=== PATIENT | female | born 2000 | race Caucasian/White ===

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

== ENCOUNTER 2018-03-23 18:12 | Emergency (ER) | payer OTHER ==
--- NOTE | 2018-03-23 18:56 | CPEKG ---
Test Reason : OPEN Blood Pressure : / mmHG Vent. Rate : 062 BPM Atrial Rate : 064 BPM P-R Int : 122 ms QRS Dur : 090 ms QT Int : 402 ms P-R-T Axes : 073 113 061 degrees QTc Int : 409 ms Sinus rhythm Left posterior fascicular block Confirmed by Yadiel Pino ([id number]) on 03/23/2018 6:55:42 PM Referred By: Confirmed By:Yadiel Pino
[2018-03-23 19:06] LABS: PLATELET COUNT 317 10^3/uL (150-400)
[2018-03-23] MEDS: NS 1,000 ML IV ONE (19:12)
[2018-03-23] MEDS: KETOROLAC 15 MG/1 ML SDV IVP ONE (19:12)
--- NOTE | 2018-03-23 19:32 | EDPHY ---
H & P Stated Complaint: c/o 9 days of n/v/fever, cp starting today Time Seen by Provider: 03/23/18 18:32 HPI/ROS: Chief complaint: Fever and cold symptoms History of present illness: This is an otherwise healthy 17-year-old female sent to the emergency department by [facility] for evaluation of fever and cold symptoms. Patient reports she has been sick for the last 9 days. She has had tactile fevers, runny nose, cough. In addition over the last few days she has had some nausea and occasional vomiting. She has developed diffuse abdominal and back pain. She reports mild discomfort with urination. Today she developed left-sided chest discomfort. She describes a sharp chest discomfort. It is not pleuritic in nature. There is no shortness of breath. She denies headache or neck pain. She denies pain or swelling in the legs. [facility] did believe she might have a urinary tract infection and started her on antibiotics although she is not sure what antibiotic. She has taken a single dose. They were concerned for pericarditis which is why they sent her here. Review of systems: A 10 point review of systems was obtained and other than described above was negative - Medical/Surgical History Hx Asthma: No Hx Chronic Respiratory Disease: No Hx Diabetes: No Hx Cardiac Disease: No Hx Renal Disease: No Hx Cirrhosis: No Hx Alcoholism: No Hx HIV/AIDS: No Hx Splenectomy or Spleen Trauma: No Other PMH: depression & anxiety, anorexia, add, tonsil surg, adenoidectomy - Social History Smoking Status: Former smoker - Physical Exam Exam: General Appearance: Alert, no distress. Eyes: Pupils equal and round no pallor or injection. ENT, Mouth: Tympanic membranes, external auditory canals, external easr and surrounding soft tissue including over the mastoids are unremarkable. Nasopharynx is not injected. There is no rhinorrhea. Oropharynx is not injected. There is no edema. There is no exudate. There is no asymmetry. The uvula is midline. No elevation of the tongue. There is no hoarseness, no drooling, no trismus, no stridor. Respiratory: There are no retractions, lungs are clear to auscultation. Cardiovascular: Regular rate and rhythm. Gastrointestinal: Bowel sounds are normal. Abdomen is soft and nondistended. Mild diffuse tenderness although there is McBurney's point tenderness. Genitourinary: Mild bilateral CVA tenderness. Neurological: Alert and oriented x4. Strength and sensation intact and symmetrical. No meningismus. Skin: Warm and dry, no rashes. Musculoskeletal: Neck is supple non tender. Extremities are symmetrical, full range of motion. Psychiatric: Patient is oriented X 3, there is no agitation. Constitutional: Initial Vital Signs Temperature (C) 36.9 C 03/23/18 18:20 Heart Rate 94 03/23/18 18:20 Respiratory Rate 16 03/23/18 18:20 Blood Pressure 118/83 H 03/23/18 18:20 O2 Sat (%) 95 03/23/18 18:20 O2 Delivery Mode Room Air Allergies/Adverse Reactions: No Known Allergies Allergy (Verified 03/23/18 18:24) Home Medications: Medication Instructions Recorded Melatonin 05/27/17 Cephalexin [Keflex] 500 mg PO QID 7 Days cap 03/23/18 Klonopin 03/23/18 Trintellix 03/23/18 VYVANSE 03/23/18 Medical Decision Making - Diagnostics Imaging Results: Imaging Impressions Abdomen Ultrasound 03/23/18 18:57 Impression: No evidence of appendicitis. Findings and recommendations discussed with Emergency Department Physician Loan Review Analyst, KAITLYN Storm, at 1940 hours, on March 23, 2018. Final report concurs with initial preliminary interpretation. Chest X-Ray 03/23/18 18:57 Impression: No acute pulmonary disease. Imaging: I viewed and interpreted images myself ED Course/Re-evaluation: Patient is discussed with my secondary supervising physicians, initially Dr. Yadiel Pino and then Dr. Gladis Maurice. I do believe patient is suffering from a URI. Further, I am concerned she has a urinary tract infection. She has been symptomatically treated with pain medicine and fluid hydration and is feeling better. She is tolerating oral challenges. She is ambulating without difficulty. She has been given 1 g Rocephin IV in the emergency room. I have asked her to stop the antibiotic that [facility] gave her as it is not clear what this is and she will be started on Keflex. Home care is discussed including the use of NSAIDs as well as stronger pain medicines as needed. Hydration and rest. She is to follow up with [facility] on Monday for recheck. She is given strict return precautions. She has voiced understanding and agreement with plan. Differential Diagnosis: Included but not limited to URI, bronchitis, pneumonia, influenza, pericarditis , gastritis, gastroenteritis, biliary tract disease, pancreatitis, urinary tract disease, an associated complications - Data Points Laboratory Results: Laboratory Results 03/23/18 18:35 03/23/18 18:35 03/23/18 03/23/18 03/23/18 20:14 18:35 18:35 WBC RBC Hgb Hct MCV MCH MCHC RDW Plt Count MPV Neut % (Auto) Lymph % (Auto) [place] % (Auto) Eos % (Auto) Baso % (Auto) Nucleat RBC Rel Count Absolute Neuts (auto) Absolute Lymphs (auto) Absolute Monos (auto) Absolute Eos (auto) Absolute Basos (auto) Absolute Nucleated RBC Immature Gran % Immature Gran # Sodium 139 mEq/L mEq/L (135-145) Potassium 3.7 mEq/L mEq/L (3.3-5.0) Chloride 101 mEq/L mEq/L (97-110) Carbon Dioxide 23 mEq/l mEq/l (22-31) Anion Gap 15 mEq/L H mEq/L (6-14) BUN 7 mg/dL mg/dL (7-23) Creatinine 0.8 mg/dL mg/dL (0.6-1.0) Estimated GFR > 60 Glucose 79 mg/dL mg/dL (70-100) Calcium 9.6 mg/dL mg/dL (8.5-10.4) Total Bilirubin 0.5 mg/dL mg/dL (0.1-1.4) Conjugated Bilirubin 0.2 mg/dL mg/dL (0.0-0.5) Unconjugated Bilirubin 0.3 mg/dL mg/dL (0.0-1.1) AST 19 IU/L IU/L (14-46) ALT 27 IU/L IU/L (9-52) Alkaline Phosphatase 97 IU/L IU/L (38-126) Total Protein 7.5 g/dL g/dL (6.3-8.2) Albumin 4.4 g/dL g/dL (3.5-5.0) Lipase 18 IU/L L IU/L (23-300) Beta HCG, Qual NEGATIVE Urine Color DANIEL Urine Appearance HAZY Urine pH 5.0 (5.0-7.5) Ur Specific [place] 1.034 H (1.002-1.030) Urine Protein 1+ H (NEGATIVE) Urine Ketones 2+ H (NEGATIVE) Urine Blood 1+ H (NEGATIVE) Urine Nitrate NEGATIVE (NEGATIVE) Urine Bilirubin NEGATIVE (NEGATIVE) Urine Urobilinogen 4.0 EU H EU (0.2-1.0) Ur Leukocyte Esterase TRACE H (NEGATIVE) Urine RBC 1-3 /hpf /hpf (0-3) Urine WBC 3-5 /hpf H /hpf (0-3) Ur Epithelial Cells 1+ /lpf /lpf (NONE-1+) Urine Bacteria TRACE /hpf H /hpf (NONE SEEN) Urine Mucus 4+ /lpf H /lpf (NONE-1+) Urine Glucose NEGATIVE (NEGATIVE) 03/23/18 18:35 WBC 14.50 10^3/uL H 10^3/uL (3.80-9.50) RBC 5.25 10^6/uL 10^6/uL (4.18-5.33) Hgb 13.9 g/dL g/dL (12.6-16.3) Hct 42.7 % % (38.0-47.0) MCV 81.3 fL L fL (81.5-99.8) MCH 26.5 pg L pg (27.9-34.1) MCHC 32.6 g/dL g/dL (32.4-36.7) RDW 12.5 % % (11.5-15.2) Plt Count 317 10^3/uL 10^3/uL (150-400) MPV 11.5 fL fL (8.7-11.7) Neut % (Auto) 72.1 % % (39.3-74.2) Lymph % (Auto) 21.9 % % (15.0-45.0) [place] % (Auto) 5.1 % % (4.5-13.0) Eos % (Auto) 0.2 % L % (0.6-7.6) Baso % (Auto) 0.4 % % (0.3-1.7) Nucleat RBC Rel Count 0.0 % % (0.0-0.2) Absolute Neuts (auto) 10.46 10^3/uL H 10^3/uL (1.70-6.50) Absolute Lymphs (auto) 3.17 10^3/uL H 10^3/uL (1.00-3.00) Absolute Monos (auto) 0.74 10^3/uL 10^3/uL (0.30-0.80) Absolute Eos (auto) 0.03 10^3/uL 10^3/uL (0.03-0.40) Absolute Basos (auto) 0.06 10^3/uL 10^3/uL (0.02-0.10) Absolute Nucleated RBC 0.00 10^3/uL 10^3/uL (0-0.01) Immature Gran % 0.3 % % (0.0-1.1) Immature Gran # 0.04 10^3/uL 10^3/uL (0.00-0.10) Sodium Potassium Chloride Carbon Dioxide Anion Gap BUN Creatinine Estimated GFR Glucose Calcium Total Bilirubin Conjugated Bilirubin Unconjugated Bilirubin AST ALT Alkaline Phosphatase Total Protein Albumin Lipase Beta HCG, Qual Urine Color Urine Appearance Urine pH Ur Specific [place] Urine Protein Urine Ketones Urine Blood Urine Nitrate Urine Bilirubin Urine Urobilinogen Ur Leukocyte Esterase Urine RBC Urine WBC Ur Epithelial Cells Urine Bacteria Urine Mucus Urine Glucose Medications Given: Discontinued Medications Hydrocodone Bitart/Acetaminophen (Enloe 5/325mg Prepack#6) 1 btl TAKEHOME EDNOW ONE Stop: 03/23/18 21:15 Last Admin: 03/23/18 21:35 Dose: 1 btl Hydromorphone HCl (Dilaudid) 0.5 mg IVP EDNOW ONE Stop: 03/23/18 20:18 Last Admin: 03/23/18 20:23 Dose: 0.5 mg Sodium Chloride (Ns) 1,000 mls @ 0 mls/hr IV EDNOW ONE; Wide Open PRN Reason: Protocol Stop: 03/23/18 18:58 Last Admin: 03/23/18 19:12 Dose: 1,000 mls Ceftriaxone Sodium/Dextrose (Rocephin 1 Gm (Premix)) 50 mls @ 100 mls/hr IV EDNOW ONE PRN Reason: Protocol Stop: 03/23/18 21:17 Last Admin: 03/23/18 21:02 Dose: 50 mls Ketorolac Tromethamine (Toradol) 15 mg IVP EDNOW ONE Stop: 03/23/18 18:59 Last Admin: 03/23/18 19:12 Dose: 15 mg Ondansetron HCl (Zofran) 4 mg IVP EDNOW ONE Stop: 03/23/18 20:27 Last Admin: 03/23/18 20:29 Dose: 4 mg Departure - Departure Disposition: Home, Routine, Self-Care Clinical Impression: Viral syndrome UTI (urinary tract infection) Qualifiers: Urinary tract infection type: site unspecified Hematuria presence: with hematuria Qualified Code(s): N39.0 - Urinary tract infection, site not specified ; R31.9 - Hematuria, unspecified; R31.9 - Hematuria, unspecified Condition: Good Instructions: Hydrocodone/Acetaminophen (By mouth), Urinary Tract Infection in Women (ED), Viral Syndrome (ED) Additional Instructions: Follow-up with [facility] on Monday for recheck without fail In regards to your respiratory tract infection I suggest you drink plenty of fluids. Get plenty of rest. In regards to your urinary tract infection please let [facility] know that a urine culture is pending. Take antibiotics as prescribed. Use ibuprofen 600 mg 3 times a day for the next 2-3 days for pain You can take Enloe as well for pain. Enloe contains Tylenol. Do not take extra Tylenol/acetaminophen/APAP with it. It is sedating. If symptoms worsen or new symptoms develop return to the emergency room for recheck Referrals: NONE *PRIMARY CARE P,. [Primary Care Provider] - As per Instructions [facility] [Cl[facility]] - As per Instructions Prescriptions: Cephalexin [Keflex] 500 mg PO QID 7 Days cap
[2018-03-23] MEDS: HYDROmorphONE/DILAUDID 2 MG/ML INJ IVP ONE (20:23)
[2018-03-23] MEDS: ONDANSETRON 4 MG/2 ML VIAL IVP ONE (20:29)
[2018-03-23] MEDS: HYDROCOD/APAP 5/325 PREPACK#6 BTL TAKEHOME ONE (21:35)
[2018-03-23 21:43] VITALS: BP 116/62
== END 2018-03-23 21:43 | disposition home or self-care (01) ==
DX: N39.0 Urinary tract infection, site not specified (principal); N31.9 Neuromuscular dysfunction of bladder, unspecified; B34.9 Viral infection, unspecified
CPT/HCPCS: 96365; J0696; J1170; J1885; J2405

== ENCOUNTER 2018-03-29 12:32 | Observation (INO) | payer OTHER ==
[2018-03-29] MEDS ORDERED: NS 1,000 ML IV ONE ×2 (12:59)
[2018-03-29] MEDS ORDERED: ONDANSETRON 4 MG/2 ML VIAL IVP ONE ×2 (12:59→15:22)
--- NOTE | 2018-03-29 13:08 | EDPHY ---
H & P Stated Complaint: Dif abd pn x 2 weeks, N/V, denies blood Time Seen by Provider: 03/29/18 12:44 HPI/ROS: CHIEF COMPLAINT: Abdominal pain, nausea, vomiting "I want a CT scan" HISTORY OF PRESENT ILLNESS: 17-year-old female in the emergency department via private vehicle complaining of continued abdominal pain, nausea, vomiting, constipation for approximately 2 weeks. The patient was initially seen in the emergency department 6 days ago for URI symptoms as well as urinary symptoms. She had abdominal ultrasound which was negative for appendicitis at that time as well as chest x-ray which was negative. It was felt that the patient was experiencing upper respiratory infection with concern over urinary tract infection, given IV Rocephin and started on Keflex which the patient took for 1 day. However, this elicited nausea and vomiting and patient subsequently stopped taking the Keflex. She returns to the ER after being seen at [facility] for continued symptoms, specifically at this time she is complaining of abdominal pain, nausea , vomiting, right lower quadrant pain, sent to the ER for evaluation of possible acute appendicitis. She presents [place] [facility] [place] [id number]. She denies: Melena, hematochezia, fever, chills , abdominal or other trauma REVIEW OF SYSTEMS: 10 systems reviewed and negative with the exception of the elements mentioned in the history of present illness PAST MEDICAL & SURGICAL HISTORY: Intrauterine device. No history of abdominal surgeries. Adenoidectomy. Depression. Anxiety. Anorexia. SOCIAL HISTORY: Nonsmoker. PHYSICAL EXAM (Prior to examination, patient consented to physical exam, hands were washed and my usual and customary physical exam procedures followed) 1) GENERAL: Well-developed, well-nourished, alert and oriented. Appears uncomfortable, laying curled up on the bed 2) HEAD: Normocephalic, atraumatic 3) HEENT: Pupils equal, round, reactive to light bilaterally. Sclera anicteric. Nasopharynx, oropharynx, clear, no lesions. Dry mucous membranes. 4) NECK: Full range of motion, no meningeal signs. 5) LUNGS: Clear auscultation bilaterally, no wheezes, no rhonchi, no retractions. 6) HEART: Regular rate and rhythm, no murmur, no heave, no gallop. 7) ABDOMEN: guarding abdomen, tender to palpation at McBurney's point, negative Hazel's, negative Rovsing's, negative peritoneal sign, not distended, flat 8) MUSCULOSKELETAL: Moving all extremities, no focal areas of tenderness, no obvious trauma. No peripheral edema or discoloration. 9) BACK: No CVA tenderness, no midline vertebral tenderness, no fluctuance, no step-off, no obvious trauma, no visual or palpable abnormality. 10) SKIN: No rash, no petechiae. 11) Psychiatric: Patient is oriented X 3, there is no agitation. DIFFERENTIAL DIAGNOSIS: My differential diagnosis includes, but is not limited to, acute appendicitis, acute cholecystitis, bowel obstruction, acute pancreatitis, ovarian torsion, ectopic , gastritis and urinary tract infection. The patient understands that this diagnosis is provisional and can never be 100% accurate. This is a partial list of diagnoses considered. These considerations are based on history, physical exam, past history and reassessment. - Personal History Current Tetanus/Diphtheria Vaccine: Yes - Medical/Surgical History Hx Asthma: No Hx Chronic Respiratory Disease: No Hx Diabetes: No Hx Cardiac Disease: No Hx Renal Disease: No Hx Cirrhosis: No Hx Alcoholism: No Hx HIV/AIDS: No Hx Splenectomy or Spleen Trauma: No Other PMH: depression & anxiety, anorexia, add, tonsil surg, adenoidectomy - Social History Smoking Status: Former smoker Constitutional: Initial Vital Signs Temperature (C) 36.8 C 03/29/18 12:35 Heart Rate 116 H 03/29/18 12:35 Respiratory Rate 18 03/29/18 12:35 Blood Pressure 116/75 03/29/18 12:35 O2 Sat (%) 98 03/29/18 12:35 O2 Delivery Mode Room Air Allergies/Adverse Reactions: No Known Allergies Allergy (Verified 03/29/18 12:35) Home Medications: Medication Instructions Recorded Acetaminophen [Tylenol 325mg (*)] 325 - 650 mg PO Q6 PRN 03/29/18 Ibuprofen [Motrin (*)] 200 - 400 mg PO Q4H PRN 03/29/18 Lisdexamfetamine Dimesylate 30 mg PO DAILY 03/29/18 [Vyvanse] Melatonin/Pyridoxine HCl (B6) 1 each PO HS PRN 10/18/18 [Melatonin 10 mg Tablet] Naproxen Sodium [Aleve 220 MG (*)] 220 mg PO BID PRN 03/29/18 Vortioxetine Hydrobromide 5 mg PO DAILY 03/29/18 [Brintellix] clonazePAM [klonoPIN (*)] 1 mg PO HS PRN 03/29/18 Medical Decision Making ED Course/Re-evaluation: 12:46 p.m.: I reviewed the patient's old medical records. She is focally tender to palpation at McBurney's point. We discussed possible etiologies including, but not limited to, ectopic , ovarian pathology, acute appendicitis and other potential non emergent surgical pathologies. Will obtain diagnostic studies including CT imaging of the abdomen. Indications risks benefits of imaging discussed with patient she consents. I saw this patient independently based on established practice protocols. Care of patient under supervision of secondary supervising physician Dr Ayon with whom I discussed case. 1:41 p.m.: Pelvic ultrasound was ordered on the patient to evaluate possible ovarian pathology given location of her pain. At this time I was informed that the patient declined pelvic ultrasound until the results of the CT abdomen were returned. 255 p.m.: Patient back from CT imaging. Results have not been interpreted yet. She is complaining of continued pain. She will be given further IV Dilaudid with Zofran. Both she and her friend express their frustration at not have a specific etiology to her symptoms. They inquired whether there are any other hospitals in [place] they may go to. I informed that both that I am waiting further data points such as CT imaging and will update them as soon as I have further results. She expresses her displeasure at her prior emergency department care 3:06 p.m.: Imaging results by radiologist informed me of possible enteropathy, radiographic imaging consistent with possible Crohn's disease or ulcerative colitis 3:08 p.m.: Discussion with patient regarding her imaging results. Informed for her and her friend of the working diagnosis of possible Crohn's disease or ulcerative colitis on radiographic imaging but that this has not been confirmed yet. 3:10 p.m.: Patient requested I speak with her father who is in [place]. The patient verbally consented to disclose medical information to her father. The father was placed on speaker phone with patient and her friend at bedside and I discussed the diagnostic results. The patients father has specifically been informed that in no way is ulcerative colitis or Crohn's disease being definitively diagnosed at this time, simply that the patient has imaging findings which may be consistent with this and I recommended hospital admission and GI consultation for continued pain control and hydration as pain control has been challenging for this patient emergency department, this is her 2nd emergency department visit in a few days. Patient and father are agreeable with admission. 3:25 p.m.: Consultation with hospitalist Dr. Jensen Larsen who will admit primarily. Will consult GI 3:[address] Vitaliy Donaldson gastroenterology who recommended holding on steroids at this time as specific diagnosis incompletely clear at this time. 5:00 p.m.: Called to the bedside shortly before patient was being transferred to inpatient bed. Both she and friend expressed their frustration at this time over "conflicting information" and thoughts of leaving the hospital. I stressed the importance of admission and importance of further diagnostic studies to aide in a possible diagnosis. Patient is agreeable with admission. - Data Points Laboratory Results: Laboratory Results 03/29/18 13:18 03/29/18 13:18 Medications Given: Clonazepam (Klonopin) 1 mg PO HS PRN PRN Reason: Insomnia, Use 2nd Stop: 09/25/18 16:21 Last Admin: 03/30/18 13:33 Dose: 1 mg Hydromorphone HCl (Dilaudid) 0.2 - 0.4 mg IVP Q4HRS PRN PRN Reason: Pain, Severe Unable to Take PO Stop: 04/08/18 16:19 Last Admin: 03/30/18 13:57 Dose: 0.4 mg Miscellaneous Medication (Lisdexamfetamine Dimesylate [Vyvanse]) 30 mg PO DAILY ALANA Stop: 09/26/18 08:59 Last Admin: 03/30/18 09:11 Dose: Not Given Miscellaneous Medication (Vortioxetine Hydrobromide [Trintellix]) 5 mg PO DAILY ALANA Stop: 09/26/18 08:59 Last Admin: 03/30/18 09:11 Dose: Not Given Ondansetron HCl (Zofran) 4 mg IVP Q4HRS PRN PRN Reason: Nausea/Vomiting, Can't Take PO Stop: 09/25/18 16:19 Last Admin: 03/29/18 18:04 Dose: 4 mg Oxycodone/Acetaminophen (Percocet 5/325) 1 - 2 tab PO Q4HRS PRN PRN Reason: Pain, Severe Able to Take PO Stop: 04/08/18 16:19 Last Admin: 03/30/18 09:17 Dose: 1 tab Promethazine HCl (Phenergan) 6.25 - 12.5 mg IVP Q6HRS PRN PRN Reason: Nausea/Vomiting, Use 2nd Stop: 09/25/18 16:19 Last Admin: 03/29/18 19:10 Dose: 12.5 mg Trazodone HCl (Trazodone) 50 mg PO HS PRN PRN Reason: insomnia Stop: 09/25/18 20:59 Last Admin: 03/29/18 19:56 Dose: 50 mg Discontinued Medications Bisacodyl (Dulcolax Rectal) 10 mg KS ONCE ONE Stop: 03/30/18 11:16 Last Admin: 03/30/18 11:26 Dose: 10 mg Hydromorphone HCl (Dilaudid) 1 mg IVP EDNOW ONE Stop: 03/29/18 14:58 Last Admin: 03/29/18 15:01 Dose: 1 mg Hydromorphone HCl (Dilaudid) 1 mg IVP EDNOW ONE Stop: 03/29/18 16:58 Last Admin: 03/29/18 17:15 Dose: 1 mg Sodium Chloride (Ns) 1,000 mls @ 0 mls/hr IV EDNOW ONE; Wide Open PRN Reason: Protocol Stop: 03/29/18 13:00 Last Admin: 03/29/18 13:18 Dose: 1,000 mls Sodium Chloride (Ns) 1,000 mls @ 0 mls/hr IV EDNOW ONE; Wide Open PRN Reason: Protocol Stop: 03/29/18 13:00 Last Admin: 03/29/18 13:19 Dose: 1,000 mls Sodium Chloride (Ns) 1,000 mls @ 100 mls/hr IV CONT ALANA Stop: 09/25/18 16:29 Last Admin: 03/29/18 18:04 Dose: 1,000 mls Magnesium Citrate (Magnesium Citrate) 300 ml PO ONCE ONE Stop: 03/29/18 19:56 Last Admin: 03/30/18 02:23 Dose: 300 ml Morphine Sulfate (Morphine) 4 mg IVP EDNOW ONE Stop: 03/29/18 13:36 Last Admin: 03/29/18 13:55 Dose: 4 mg Ondansetron HCl (Zofran) 4 mg IVP EDNOW ONE Stop: 03/29/18 13:00 Last Admin: 03/29/18 13:19 Dose: 4 mg Ondansetron HCl (Zofran) 4 mg IVP EDNOW ONE Stop: 03/29/18 15:23 Last Admin: 03/29/18 15:23 Dose: 4 mg Polyethylene Glycol/Electrolytes (Gavilyte - G) 2,000 ml PO ONCE ONE Stop: 03/30/18 11:46 Last Admin: 03/30/18 13:34 Dose: 2,000 ml Point of Care Test Results: Chemistry 03/29/18 13:28 POC Sodium 142 mEq/L mEq/L (135-145) POC Potassium 3.9 mEq/L mEq/L (3.3-5.0) POC Chloride 102 mEq/L mEq/L (97-110) POC BUN 3 mg/dL L mg/dL (7-23) POC Creatinine 0.7 mg/dL mg/dL (0.6-1.0) POC Glucose 85 mg/dL mg/dL (70-100) ISTAT H&H 03/29/18 13:28 POC Hgb 15.6 gm/dL gm/dL (12.6-16.3) POC Hct 46 % % (38-47) Departure - Departure Disposition: [facility] In[facility] Acute Clinical Impression: possible enteropathy, possible Crohns disease, possible ulcerative colitis Abdominal pain Qualifiers: Abdominal location: right lower quadrant Qualified Code(s): R10.31 - Right lower quadrant pain Condition: Fair
[2018-03-29 13:44] LABS: PLATELET COUNT 303 10^3/uL (150-400)
[2018-03-29] MEDS ORDERED: IOPAMIDOL (ISOVUE-300) 100 ML BTL ONE (14:09)
[2018-03-29] MEDS ORDERED: HYDROmorphONE/DILAUDID 1 MG/ML INJ IVP ONE ×2 (14:57→16:57)
[2018-03-29] MEDS ORDERED: ONDANSETRON 4 MG/2 ML VIAL ONE (15:20)
[2018-03-29] MEDS ORDERED: ACETAMINOPHEN 325 MG TAB PO PRN (16:20)
[2018-03-29] MEDS ORDERED: ONDANSETRON 4 MG/2 ML VIAL IVP PRN (16:20)
[2018-03-29] MEDS ORDERED: ONDANSETRON DISINTEGRATING 4 MG TAB PO PRN (16:20)
[2018-03-29] MEDS ORDERED: MELATONIN PO PRN (16:22)
[2018-03-29] MEDS ORDERED: PYRIDOXINE HCL PO PRN (16:22)
[2018-03-29] MEDS ORDERED: IBUPROFEN 200 MG TAB PO PRN (16:22)
[2018-03-29] MEDS ORDERED: NS 1,000 ML IV SCH (16:30)
--- NOTE | 2018-03-29 17:12 | PDGENHP ---
History and Physical - Chief Complaint abdominal pain - History of Present Illness 17yo F with history of anxiety, depression who presents with diffuse abdominal pain associated with non-bloody, non-bilious emesis and a few loose, non-bloody stools. Not able to localize the pain. These symptoms started about 3 weeks ago at which time she also reports a runny nose and some chest heaviness that she attributed to a URI. She has had low grade fevers (temp 99) at home. She denies francisco diarrhea. She came to this ED on 03/23 due to her persistent abdominal symptoms. Abdominal US normal. She had a mild leukocytosis and mildly infected appearing UA at that time so given dose of IV rocephin and sent home with keflex. She denies having any urinary symptoms throughout the last few weeks. She subsequently developed a vaginal yeast infection so stopped taking the keflex on Monday. She has an IUD and doesn't have regular menstrual cycles. Roommate was sick with mono and strep throat; she has reportedly been tested for these several times at her [facility] with negative results. She declines being tested for these again. She smokes marijauna somewhat regularly; she stopped smoking about a week ago with no change in abdominal symptoms. In the ED, she had a contrasted abdominal CT which showed diffuse large bowel circumferential wall thickening and increased mucosal enhancement. The descending colon showed loss of normal interhaustral folds which was suspicious for Crohn's/UC based on the radiology read. She is being admitted for intractable abdominal pain and emesis. Case discussed with ED provider Kelin Naylor. Of note, patient upset that we haven't given her a definitive diagnosis yet. She hopes to have one prior to leaving this hospital. History Information - Allergies/Home Medication List Allergies/Adverse Reactions: No Known Allergies Allergy (Verified 03/29/18 12:35) Home Medications: Acetaminophen [Tylenol 325mg (*)] 325 - 650 mg PO Q6 PRN 03/29/18 [Last Taken Unknown] Ibuprofen [Motrin (*)] 200 - 400 mg PO Q4H PRN 03/29/18 [Last Taken Unknown] Lisdexamfetamine Dimesylate [Vyvanse] 30 mg PO DAILY 03/29/18 [Last Taken ] Melatonin/Pyridoxine HCl (B6) [Melatonin 10 mg Tablet] 1 each PO HS PRN [Last Taken Unknown] Naproxen Sodium [Aleve 220 MG (*)] 220 mg PO BID PRN 03/29/18 [Last Taken ] Vortioxetine Hydrobromide [Brintellix] 5 mg PO DAILY 03/29/18 [Last Taken ] clonazePAM [klonoPIN (*)] 1 mg PO HS PRN 03/29/18 [Last Taken Unknown] I have personally reviewed and updated: family history, medical history, social history, surgical history - Past Medical History Additional medical history: depression/anxiety, remote h/o anorexia - Surgical History Additional surgical history: tonsillectomy, IUD placement - Family History Additional family history: unknown disease on mother's side, no h/o IBD on father's side - Social History Smoking Status: Former smoker Alcohol Use: None (none in last month or so, never heavy use) Drug Use: Marijuana Additional social history: Student at , originally from [place] Review of Systems Review of Systems: ROS: 10pt was reviewed & negative except for what was stated in HPI & below Physical Exam Physical Exam: Temp Pulse Resp BP Pulse Ox 36.8 C 72 16 118/77 96 03/29/18 16:41 03/29/18 16:41 03/29/18 16:41 03/29/18 16:41 03/29/18 16:41 Constitutional: no apparent distress, appears nourished, not in pain Eyes: PERRL, anicteric sclera, EOMI Ears, Nose, Mouth, Throat: moist mucous membranes, hearing normal, ears appear normal, no oral mucosal ulcers Cardiovascular: regular rate and rhythym, no murmur, rub, or gallop, No edema Respiratory: no respiratory distress, no rales or rhonchi, clear to auscultation Gastrointestinal: normoactive bowel sounds, no palpable masses, tenderness ( diffuse, mild), No hepatosplenomegally, No guarding, No distension Genitourinary: no bladder fullness, no bladder tenderness Skin: warm, normal color, no rashes or abrasions, no fluctuance, no induration, No mottled Musculoskeletal: full muscle strength, no muscle tenderness, normal joint ROM, no joint effusions Neurologic: AAOx3 Psychiatric: interacting appropriately, not encephalopathic, thought process linear, anxious Lab Data & Imaging Review 03/29/18 13:18 03/29/18 13:18 WBC 12.41 10^3/uL (3.80-9.50) H 03/29/18 13:18 RBC 5.35 10^6/uL (4.18-5.33) H 03/29/18 13:18 Hgb 14.5 g/dL (12.6-16.3) 03/29/18 13:18 POC Hgb 15.6 gm/dL (12.6-16.3) 03/29/18 13:28 Hct 43.5 % (38.0-47.0) 03/29/18 13:18 POC Hct 46 % (38-47) 03/29/18 13:28 MCV 81.3 fL (81.5-99.8) L 03/29/18 13:18 MCH 27.1 pg (27.9-34.1) L 03/29/18 13:18 MCHC 33.3 g/dL (32.4-36.7) 03/29/18 13:18 RDW 12.9 % (11.5-15.2) 03/29/18 13:18 Plt Count 303 10^3/uL (150-400) 03/29/18 13:18 MPV 12.0 fL (8.7-11.7) H 03/29/18 13:18 Neut % (Auto) 82.8 % (39.3-74.2) H 03/29/18 13:18 Lymph % (Auto) 12.1 % (15.0-45.0) L 03/29/18 13:18 [place] % (Auto) 4.4 % (4.5-13.0) L 03/29/18 13:18 Eos % (Auto) 0.2 % (0.6-7.6) L 03/29/18 13:18 Baso % (Auto) 0.3 % (0.3-1.7) 03/29/18 13:18 Nucleat RBC Rel Count 0.0 % (0.0-0.2) 03/29/18 13:18 Absolute Neuts (auto) 10.27 10^3/uL (1.70-6.50) H 03/29/18 13:18 Absolute Lymphs (auto) 1.50 10^3/uL (1.00-3.00) 03/29/18 13:18 Absolute Monos (auto) 0.55 10^3/uL (0.30-0.80) 03/29/18 13:18 Absolute Eos (auto) 0.02 10^3/uL (0.03-0.40) L 03/29/18 13:18 Absolute Basos (auto) 0.04 10^3/uL (0.02-0.10) 03/29/18 13:18 Absolute Nucleated RBC 0.00 10^3/uL (0-0.01) 03/29/18 13:18 Immature Gran % 0.2 % (0.0-1.1) 03/29/18 13:18 Immature Gran # 0.03 10^3/uL (0.00-0.10) 03/29/18 13:18 POC Sodium 142 mEq/L (135-145) 03/29/18 13:28 Sodium 141 mEq/L (135-145) 03/29/18 13:18 POC Potassium 3.9 mEq/L (3.3-5.0) 03/29/18 13:28 Potassium 4.3 mEq/L (3.3-5.0) 03/29/18 13:18 POC Chloride 102 mEq/L (97-110) 03/29/18 13:28 Chloride 101 mEq/L (97-110) 03/29/18 13:18 Carbon Dioxide 26 mEq/l (22-31) 03/29/18 13:18 Anion Gap 14 mEq/L (6-14) 03/29/18 13:18 POC BUN 3 mg/dL (7-23) L 03/29/18 13:28 BUN 6 mg/dL (7-23) L 03/29/18 13:18 Creatinine 0.7 mg/dL (0.6-1.0) 03/29/18 13:18 POC Creatinine 0.7 mg/dL (0.6-1.0) 03/29/18 13:28 Estimated GFR > 60 03/29/18 13:18 Glucose 85 mg/dL (70-100) 03/29/18 13:18 POC Glucose 85 mg/dL (70-100) 03/29/18 13:28 Calcium 10.2 mg/dL (8.5-10.4) 03/29/18 13:18 Total Bilirubin 0.5 mg/dL (0.1-1.4) 03/29/18 13:18 Conjugated Bilirubin 0.2 mg/dL (0.0-0.5) 03/29/18 13:18 Unconjugated Bilirubin 0.3 mg/dL (0.0-1.1) 03/29/18 13:18 AST 23 IU/L (14-46) 03/29/18 13:18 ALT 22 IU/L (9-52) 03/29/18 13:18 Alkaline Phosphatase 100 IU/L (38-126) 03/29/18 13:18 Total Protein 7.8 g/dL (6.3-8.2) 03/29/18 13:18 Albumin 4.5 g/dL (3.5-5.0) 03/29/18 13:18 Lipase 15 IU/L (23-300) L 03/29/18 13:18 Beta HCG, Qual NEGATIVE 03/29/18 13:18 Urine Color PALE YELLOW 03/29/18 14:05 Urine Appearance CLEAR 03/29/18 14:05 Urine pH 8.0 (5.0-7.5) H 03/29/18 14:05 Ur Specific [place] 1.008 (1.002-1.030) 03/29/18 14:05 Urine Protein NEGATIVE (NEGATIVE) 03/29/18 14:05 Urine Ketones TRACE (NEGATIVE) H 03/29/18 14:05 Urine Blood NEGATIVE (NEGATIVE) 03/29/18 14:05 Urine Nitrate NEGATIVE (NEGATIVE) 03/29/18 14:05 Urine Bilirubin NEGATIVE (NEGATIVE) 03/29/18 14:05 Urine Urobilinogen NEGATIVE EU (0.2-1.0) 03/29/18 14:05 Ur Leukocyte Esterase NEGATIVE (NEGATIVE) 03/29/18 14:05 Urine RBC NONE SEEN /hpf (0-3) 03/29/18 14:05 Urine WBC 0-1 /hpf (0-3) 03/29/18 14:05 Ur Epithelial Cells TRACE /lpf (NONE-1+) 03/29/18 14:05 Urine Bacteria 1+ /hpf (NONE SEEN) H 03/29/18 14:05 Urine Mucus TRACE /lpf (NONE-1+) 03/29/18 14:05 Urine Glucose NEGATIVE (NEGATIVE) 03/29/18 14:05 Assessment & Plan Assessment: 17yo F with history of anxiety, depression who presents with diffuse abdominal pain of 3 weeks duration associated with non-bloody emesis. She is being admitted for symptom management. Plan: #Acute abdominal pain, nausea/vomiting: Benign exam, labs grossly re-assuring except for mild leukocytosis. CT scan of her abdomen with some signs concerning for IBD. She is not anemic. This all could just be viral process. Will manage with IV dilaudid PRN, oxycodone PRN, IV anti-emetics. Check GI PCR, iron studies , pelvic ultrasound. GI consult in AM. Hold on empirically starting antibiotics and steroids. #Tachycardia: Consistent with mild dehdyration. Giving IVF. #Borderline enlarged spleen: Noted on CT. Reportedly tested for mono twice recently with negative results. She declines being tested again. Plts ok. #Recent ? UA: She denies urinary sxs. Will not treat further. #Depression/anxiety: Continue home meds. Diet: regular VTE ppx: low risk, ambulation Code: full Dispo: Admit under observation for management of pain, GI consultation.
[2018-03-29] MEDS: PROMETHAZINE HCL 25 MG/ML INJ IVP PRN (19:10)
[2018-03-29] MEDS: clonazePAM 1 MG TAB PO PRN (19:11)
[2018-03-29] MEDS: traZODone 50 MG TAB PO PRN (19:56)
[2018-03-29] MEDS ORDERED: D5W 1/2 NS W/ 20 KCl/L 1,000 ML IV SCH (20:00)
--- NOTE | 2018-03-29 20:14 | GCON ---
GI INPATIENT CONSULTATION I WAS KINDLY REQUESTED TO SEE CARMELO BY ELIEZER CARBALLO IN CONSULTATION FOR A CHIEF COMPLAINT OF DIGESTIVE SYMPTOMS. FOR THE LAST 2 WEEKS, SHE HAS HAD TROUBLE WITH GENERALIZED CRAMPY ABDOMINAL PAIN, NAUSEA, VOMITING. SHE HAS HAD MOSTLY CONSTIPATION, WITH LESS FREQUENT DIARRHEA. SHE DENIES BLOOD IN HER STOOL. SHE DENIES MORE CHRONIC PROBLEM WITH THE ABOVE, ALTHOUGH LAST YEAR PRESENTED TO THE EMERGENCY DEPARTMENT WITH NAUSEA, ABDOMINAL PAIN, AND DIARRHEA, WHERE SHE UNDERWENT CT SCAN. SHE DENIES FEVER, RIGORS, CHILLS. SHE DENIES ANY NEW MEDICATIONS BEFORE THE ABOVE. DATE OF CONSULTATION: 03/29/2018 REFERRING PHYSICIAN: JANET Champion PAST MEDICAL HISTORY: Depression, anxiety with some report of anorexia. OUTPATIENT MEDICATIONS: Include Vyvanse, Brintellix, melatonin, and Klonopin as needed. INPATIENT MEDICATIONS: Include Klonopin, Motrin, IV fluids. ALLERGIES: No known drug allergies. SOCIAL HISTORY: She is a former smoker. FAMILY HISTORY: Negative for similar abdominal pain. REVIEW OF SYSTEMS: Positive pertinent review of systems as per my HPI. Otherwise, complete review of systems is negative. PHYSICAL EXAM: CONSTITUTIONAL: Sleepy patient, nontoxic. VITAL SIGNS: Stable. SKIN: Warm, dry. EYES: Pupils equal, round, and reactive to light and accommodation. EARS, NOSE, MOUTH, and THROAT: Oropharynx without masses. Moist mucosae. CARDIOVASCULAR: Normal S1 and S2. Normal PMI. RESPIRATORY: Lungs clear to auscultation and percussion anteriorly. GASTROINTESTINAL: Abdomen moderately tender throughout. No masses felt. NEUROLOGIC: Grossly nonfocal. Cranial nerves grossly intact. PSYCHIATRIC: Orientation and insight appropriate. MUSCULOSKELETAL: Strengths grossly normal throughout. Normal station. LABORATORIES: Include a white count of 12.4 thousand. Beta-hCG negative. Normal liver function tests. Normal lipase. Urinalysis negative. CT scan of the abdomen and pelvis shows a normal small bowel. There is mention of diffuse colonic circumferential wall thickening throughout most of the colon , with a "featureless" descending colon. There is mention of increased mucosal enhancement. ASSESSMENT: Generalized abdominal pain for several weeks, along with nausea, vomiting, constipation, and less frequent diarrhea. With her CT scan findings, this could represent a prolonged viral gastroenteritis. Another strong possibility is irritable bowel syndrome with some functional cyclical vomiting, with an emotional overlay. Crohn's colitis is possible, but much less likely, especially with the acute nature, constipation-predominance, lack of blood, etc. CT findings of the colon are notoriously poor, as it is an air-filled organ. I do not suspect ulcerative colitis whatsoever, as this usually presents only with bloody diarrhea. PLAN: 1. We will proceed with colonoscopy tomorrow, to follow up on the CT scan findings, to help delineate the above. 2. Discontinue as-needed Motrin. 3. Further management depending on the above. Thank you for allowing me to help in the management of this patient. /[id number]/MODL MTDD
[2018-03-29] MEDS: MAGNESIUM CITRATE 300 ML BOTTLE PO ONE (20:31)
[2018-03-29] MEDS: OXYCODONE/APAP 5/325 TAB PO PRN (20:57)
[2018-03-30] MEDS: MAGNESIUM CITRATE 300 ML BOTTLE PO ONE (02:23)
[2018-03-30] MEDS: Lisdexamfetamine Dimesylate [Vyvanse] 30 MG PO SCH (09:11)
[2018-03-30] MEDS: Vortioxetine Hydrobromide [Trintellix] 5 MG PO SCH (09:11)
[2018-03-30] MEDS: OXYCODONE/APAP 5/325 TAB PO PRN ×2 (09:17→17:27)
[2018-03-30] MEDS: HYDROmorphONE/DILAUDID 1 MG/ML INJ IVP PRN ×3 (09:47→20:56)
[2018-03-30] MEDS ORDERED: BISACODYL 10 MG SUPP PR ONE (11:15)
[2018-03-30] MEDS ORDERED: PEG 3350/NA SULF,BICARB,CL/KCL (GAVILYTE-G) 4000 ML BTL PO ONE (11:45)
--- NOTE | 2018-03-30 12:51 | HOSPPROG ---
Hospitalist Progress Note Assessment/Plan: #C-Diff Colitis, Diarrhea #Abd Pain #N/V #Hx of Marijuana use Plan: -Start PO Vanc -cont clear -await GI reccs -cont IVF, oral intake has been difficult Subjective: still with abd discomfort. 1 BM. Was planning on getting colonoscopy but stool testing is consistent with C-Diff Objective: Vital Signs Temp Pulse Resp BP Pulse Ox 36.1 C 61 14 104/63 96 03/30/18 08:00 03/30/18 08:00 03/30/18 08:00 03/30/18 08:00 03/30/18 08:00 Microbiology 03/30/18 10:00 Gastrointestinal Tract Panel (PCR) - Final Stool Clostridium Difficile Detected Laboratory Results 03/30/18 04:28 03/29/18 03/30/18 03/31/18 05:59 05:59 05:59 Intake Total 1542 Output Total 600 1300 Balance 942 -1300 - Physical Exam Constitutional: no apparent distress Eyes: PERRL Ears, Nose, Mouth, Throat: moist mucous membranes Cardiovascular: No edema Respiratory: no respiratory distress Gastrointestinal: normoactive bowel sounds, No guarding, No distension Skin: warm Neurologic: AAOx3 Psychiatric: interacting appropriately, not anxious, not encephalopathic Lymph, Heme, Immunologic: No petechiae ICD10 Worksheet Patient Problems: Problems Problem Status Onset UTI (urinary tract infection) Acute Viral syndrome Acute
[2018-03-30] MEDS: clonazePAM 1 MG TAB PO PRN ×2 (13:33→20:56)
--- NOTE | 2018-03-30 14:19 | ASMTCMCOM ---
CM Note CM Note Notes: Spoke with pt and father in the room. Pt to undergo colonoscopy today. Pt admitted for nausea/vomitting and intractable abdominal pain due to cdiff after taking Keflex for upper respiratory infection and UTI. Pt is a [employer] student and lives with roommate in an apartment where she has a private bath and can discharge independently. Father is in town until pt discharges. No CM needs identified at this time. D/C Plan: Independent Date Signed: 03/30/2018 02:18 PM Electronically Signed By:Rebecca Cline
--- NOTE | 2018-03-30 15:35 | PDANEPAE ---
ANE Past Medical History - Pulmonary History Hx Oxygen in Use at Home: No Hx Sleep Apnea: No Sleep Apnea Screening Result - Last Documented: Negative - Endocrine History Hx Diabetes: No - Chronic Pain History Chronic Pain: No ANE Review of Systems Review of Systems: ANE Patient History - Allergies Allergies/Adverse Reactions: No Known Allergies Allergy (Verified 03/29/18 12:35) - Home Medications Home Medications: Acetaminophen [Tylenol 325mg (*)] 325 - 650 mg PO Q6 PRN 03/29/18 [Last Taken Unknown] Ibuprofen [Motrin (*)] 200 - 400 mg PO Q4H PRN 03/29/18 [Last Taken Unknown] Lisdexamfetamine Dimesylate [Vyvanse] 30 mg PO DAILY 03/29/18 [Last Taken ] Melatonin/Pyridoxine HCl (B6) [Melatonin 10 mg Tablet] 1 each PO HS PRN [Last Taken Unknown] Naproxen Sodium [Aleve 220 MG (*)] 220 mg PO BID PRN 03/29/18 [Last Taken ] Vortioxetine Hydrobromide [Brintellix] 5 mg PO DAILY 03/29/18 [Last Taken ] clonazePAM [klonoPIN (*)] 1 mg PO HS PRN 03/29/18 [Last Taken Unknown] - NPO status NPO Since - Liquids (Date): 03/30/18 NPO Since - Liquids (Time): 13:00 NPO Since - Solids (Date): 03/29/18 NPO Since - Solids (Time): 00:00 - Smoking Hx Smoking Status: Former smoker - Alcohol Use Alcohol Use: None (none in last month or so, never heavy use) ANE Labs/Vital Signs - Labs Result Diagrams: 03/30/18 04:28 03/29/18 13:18 - Vital Signs Blood Pressure: 94/56 Heart Rate: 65 Respiratory Rate: 15 O2 Sat (%): 94 Height: 167.64 cm Weight: 58.5 kg ANE Physical Exam - Airway Neck exam: FROM, spinal fusion Mouth exam: normal dental/mouth exam - Pulmonary Pulmonary: no respiratory distress, no rales or rhonchi, clear to auscultation - Cardiovascular Cardiovascular: regular rate and rhythym, no murmur, rub, or gallop - ASA Status ASA Status: II ANE Anesthesia Plan Anesthesia Plan: GA with mask
[2018-03-30] MEDS ORDERED: PROPOFOL/EMULSION 500 MG/50 ML BOTTLE IV ONE (15:41)
[2018-03-30] MEDS ORDERED: MIDAZOLAM 2 MG/2 ML VIAL ONE (15:41)
[2018-03-30] MEDS ORDERED: ONDANSETRON 4 MG/2 ML VIAL IVP PRN (15:50)
[2018-03-30] MEDS ORDERED: LR 500 ML IV PRN (15:50)
[2018-03-30] MEDS ORDERED: NALOXONE HCL 0.4 MG/ML INJ IVP PRN (15:50)
[2018-03-30] MEDS ORDERED: fentaNYL 100 MCG/2 ML INJ IVP PRN (15:50)
[2018-03-30] MEDS ORDERED: ALBUTEROL 3 ML DEYVIAL IH PRN (15:50)
[2018-03-30] MEDS ORDERED: VANCOMYCIN 125 MG/2.5 ML UDL PO SCH (16:00)
--- NOTE | 2018-03-30 16:28 | GIREPORT ---
[facility] - Endoscopy Department Patient Name: Ansley García Procedure Date: 03/30/2018 1:15 PM Patient Type: Inpatient Attending MD/ ER Physician: Vitaliy Donaldson MD Procedure: Colonoscopy Indications: Abnormal CT of the GI tract Providers: Vitaliy Donaldson MD, [facility] [place] Referring MD: [facility] Hospitalist service; [facility] Medicines: See the Anesthesia note for documentation of the administered medicatio ns Complications: No immediate complications. Description of Procedure: After obtaining informed consent, the scope was passed under direct vis ion. Throughout the procedure, the patient's blood pressure, pulse, and oxyg en saturations were monitored continuously. The Colonoscope was introduced through the anus and advanced to the terminal ileum. Findings: The terminal ileum appeared normal. The colon (entire examined portion) appeared normal, except for some re d "halo" signs in her rectosigmoid from her fleets enema prep. Biopsies w ere taken with a cold forceps for histology. Estimated Blood Loss: Estimated blood loss: none. Post Op Diagnosis: - Unremarkable colonoscopy. No pseudomembranes, Crohn's, colitis, etc. Suspect CT findings false-positive. Suspect positive c. diff toxin commensual only. Overall, suspect irritable bowel syndrome, with an emotional overlay wi th an exaggerated pain response. A minor contribution of viral gastroenteriti s, exacerbating the above and causing nausea, vomiting, etc., is also poss ible. Recommendation: - pathology results pending, but suspect prep artifact only. - feed - buffcap I.V. - dicyclomine prn - d/c vanco; no isolation precautions needed I will sign off; I will f/u on bx results. Else, please call if we can be of further help [phone]). Thank you for allowing me to help in the management of this patient. Case d/w Brad, pt.'s father. Attending Participation: I personally performed the entire procedure. Anika Burks MD Vitaliy Donaldson MD 03/30/2018 4:27:47 PM This report has been signed electronicallyPeter MD Anika Number of Addenda: 0 Note Initiated On: 03/30/2018 1:15 PM [email or web address]
[2018-03-30] MEDS: DICYCLOMINE 10 MG CAP PO PRN (17:27)
[2018-03-30] MEDS: traZODone 50 MG TAB PO PRN (20:56)
[2018-03-30] MEDS: PROMETHAZINE HCL 25 MG/ML INJ IVP PRN (21:35)
[2018-03-31 10:26] VITALS: BP 101/57
[2018-03-31] MEDS: Lisdexamfetamine Dimesylate [Vyvanse] 30 MG PO SCH (10:32)
[2018-03-31] MEDS: Vortioxetine Hydrobromide [Trintellix] 5 MG PO SCH (10:33)
[2018-03-31] MEDS: DICYCLOMINE 10 MG CAP PO PRN (10:38)
--- NOTE | 2018-03-31 12:14 | PDDCSUM ---
Discharge Summary Discharge Summary: 17 yo female admitted with abd pain. She was admitted. It was felt to be due to IBS. She did have a positive C-Diff test, but this was found to be a false positive as the pt had a colonoscopy w/o any e/o of C-Diff or other pathology. Biopsies were obtained and will be followed by Dr. Donaldson. GI recommended PO Vancomycin to be stopped. She has been started on Bentyl and PO meds. She has a long hx of depression and anxiety and feels like her symptoms have become worse due to multiple stressors in her life. She has appointments with her therapist who she sees weekly this coming week. She also had an appt with a pcp and with a physician who client integration manager her psych meds. She does not have any s/i DDX: #Abd Pain #IBS #Depression/anxiety, long standing #N/V #Hx of Marijuana use Exam: NAD AAOX3 MEDS: SEE MED REC F/U: PER ABOVE TOTAL TIME SPENT ON D/C IS 35 MINS.
--- NOTE | 2018-04-03 14:46 | POSTANESTH ---
Post Anesthetic Evaluation Cardiovascular Status: Normal, Stable, Similar to Pre-Op Cond Respiratory Status: Normal, Stable, Similar to Pre-op Cond. Level of Consciousness/Mental Status: Mildly Sleepy, Arousable Pain Control: Adequate, Prn Tx Ordered Nausea/Vomiting Control: Adequate, Prn Tx Ordered Complications Possibly Related to Anesthesia: None Noted
== END 2018-03-31 12:32 | disposition home or self-care (01) ==
LOC: F1N 17:32
PROVIDERS: ADMIT Internal Medicine; ATTEND Internal Medicine
PROC: 0DBN8ZX Excision of Sigmoid Colon, Via Natural or Artificial Opening Endoscopic, Diagnostic (ICD-10-PCS; principal; 2018-03-29)
DX: K52.9 Noninfective gastroenteritis and colitis, unspecified (principal); E86.9 Volume depletion, unspecified; F41.8 Other specified anxiety disorders; F12.90 Cannabis use, unspecified, uncomplicated; Z87.891 Personal history of nicotine dependence
CPT/HCPCS: 45380; 74177; 96361; 96374; 96375; 96376; 99285; G0378; 82435-PO; 82565-PO; 82947-PO; 84132-PO; 84295-PO; 84520-PO; 85014-PO; J1170; J2250; J2270; J2405; J2550; J2704; Q9967

== ENCOUNTER → 2018-07-20 | Outpatient (CLI) | payer OTHER | LOC: FIMAGING 07:59 | PROVIDERS: ATTEND Surgery | DX: R10.13 Epigastric pain (principal) ==

== ENCOUNTER → 2018-07-30 | Outpatient (CLI) | payer OTHER | LOC: FIMAGING 14:16 | PROVIDERS: ATTEND Surgery | PROC: CF1CYZZ Planar Nuclear Medicine Imaging of Hepatobiliary System, All using Other Radionuclide (ICD-10-PCS; principal; 2018-07-30) | DX: R10.817 Generalized abdominal tenderness (principal); K82.8 Other specified diseases of gallbladder | CPT/HCPCS: 78227; A9537 ==